=== PATIENT | female | born 1965 | race Caucasian/White ===

== ENCOUNTER → 2017-06-10 11:36 | Outpatient (CLI) | payer OTHER ==
[~2017-06-10] VITALS: Ht 152.4 cm; Wt 74.8 kg
[~2017-06-10 11:36] MED LIST: GILTUSS TR TAB1 EACH PO; HYZAAR 100-251 UDTAB; HYZAAR 100-251 UDTAB PO; HYZAAR PO; INDERAL LA120 MG; INDERAL LA120 MG PO; KETO10TA2 PO; LEVSIN/SL0.125 MG SL; LISINOPRIL10 MG; NEURONTIN300 MG PO; OSEL75CA PO; SUCRALFATE1 G PO; SYNTHROID150 MCG PO; SYNTHROID175 MCG; SYNTHROID175 MCG PO; TAMS0.4C PO; VASOTEC10 MG PO; ZANTAC300 MG; ZANTAC300 MG PO; ZYRTEC10 MG PO
== END | disposition home or self-care (01) ==
LOC: PPHC 11:36
DX: M54.5 Low back pain (principal)

== ENCOUNTER → 2018-02-15 06:56 | Outpatient (CLI) | payer OTHER | END | disposition home or self-care (01) | LOC: LAB 06:56 | DX: I10 Essential (primary) hypertension (principal); E78.4 Other hyperlipidemia; E03.8 Other specified hypothyroidism ==

== ENCOUNTER 2018-02-18 11:02 | Outpatient (CLI) | payer OTHER | END 2018-02-18 11:09 | disposition home or self-care (01) | LOC: NUCLEAR 11:02 | DX: R60.0 Localized edema (principal); M79.604 Pain in right leg ==

== ENCOUNTER 2018-03-04 11:58 | Outpatient (CLI) | payer OTHER | END 2018-03-04 12:00 | disposition home or self-care (01) | LOC: SONOGRAMA 11:58 | DX: E03.8 Other specified hypothyroidism (principal) ==

== ENCOUNTER 2018-09-01 14:41 | Outpatient (CLI) | payer OTHER | END 2018-09-01 14:55 | disposition home or self-care (01) | LOC: LAB 14:41 | DX: E03.8 Other specified hypothyroidism (principal); Z11.3 Encounter for screening for infections with a predominantly sexual mode of transmission ==

== ENCOUNTER → 2018-09-20 | Outpatient (CLI) | payer OTHER | END | disposition home or self-care (01) | LOC: NUCLEAR 14:00 | DX: M26.629 Arthralgia of temporomandibular joint, unspecified side (principal); M81.0 Age-related osteoporosis without current pathological fracture ==

== ENCOUNTER 2019-10-30 08:56 | Outpatient (CLI) | payer OTHER | END 2019-10-30 09:00 | disposition home or self-care (01) | LOC: LAB 08:56 | PROVIDERS: ATTEND General Practice | DX: I10 Essential (primary) hypertension (principal); E03.8 Other specified hypothyroidism; Z12.11 Encounter for screening for malignant neoplasm of colon; Z00.00 Encounter for general adult medical examination without abnormal findings ==

== ENCOUNTER 2019-11-01 14:12 | Outpatient (CLI) | payer OTHER | END 2019-11-01 14:20 | disposition home or self-care (01) | LOC: MAMO-SONO 14:12 | PROVIDERS: ATTEND General Practice | DX: Z12.31 Encounter for screening mammogram for malignant neoplasm of breast (principal); Z12.39 Encounter for other screening for malignant neoplasm of breast; E03.8 Other specified hypothyroidism; E04.1 Nontoxic single thyroid nodule ==

== ENCOUNTER 2020-05-15 13:48 | Emergency (ER) | payer OTHER ==
[~2020-05-15] VITALS: Ht 160 cm; Wt 77.1 kg
== END 2020-05-15 14:33 | disposition home or self-care (01) ==
LOC: ER 13:48 → EDBD 14:31 → ER 14:33
DX: S80.01XA Contusion of right knee, initial encounter (principal); W18.39XA Other fall on same level, initial encounter; Y93.89 Activity, other specified; Y92.69 Other specified industrial and construction area as the place of occurrence of the external cause; Y99.8 Other external cause status

== ENCOUNTER 2020-07-10 07:03 | Outpatient (CLI) | payer OTHER | END 2020-07-10 07:10 | disposition home or self-care (01) | LOC: LAB 07:03 | DX: N39.0 Urinary tract infection, site not specified (principal); Z00.00 Encounter for general adult medical examination without abnormal findings; E78.49 Other hyperlipidemia; R42 Dizziness and giddiness ==

== ENCOUNTER → 2020-10-08 06:32 | Outpatient (CLI) | payer OTHER | END | disposition home or self-care (01) | LOC: LAB 06:32 | PROVIDERS: ATTEND Physical Medicine & Rehabilitation | DX: R05 Cough (principal); R50.9 Fever, unspecified; R06.02 Shortness of breath; R06.1 Stridor; Z03.818 Encounter for observation for suspected exposure to other biological agents ruled out; J12.82 Pneumonia due to coronavirus disease 2019; M35.81 Multisystem inflammatory syndrome; M35.89 Other specified systemic involvement of connective tissue; Z11.52 Encounter for screening for COVID-19; Z20.822 Contact with and (suspected) exposure to COVID-19 ==